=== PATIENT | female | born 1970 | race Native Hawaiian/Other Pacific Islander ===

== ENCOUNTER 2016-05-25 16:12 | Outpatient (CLI) | payer OTHER ==
[~2016-05-25 16:12] MED LIST: ALBUTEROL0.083 % IN; ALPR0.2566 PO; AMIT10TA21 PO; AMIT25TA22 PO; ATEN25TA21 PO; BENADRYL25 M1 OR; BENICAR HCT1 TAB PO; BENZONATATE200 MG PO; CARV25TA PO; CEFD300C2 PO; CHLOSUS43 PO; CLOP75TA2 PO; COLACE PO; CRESTOR20 MG PO; DEXL60CA4 PO; FLUOXETINE20 MG PO; FLUT0.05 NAS; FORTAMET500 MG PO; FURO40TA93 PO; GLIM4TAB PO; HYDR25TA60 PO; HYDROCHLOROT12.5 M1 PO; LEVO500T PO; LISI20TA11 PO; LOSA50TA PO; MEDROL DOSEPAK4 MG OR; METF500T PO; METO25TA2 PO; NIASPAN500 MG PO; RANO1000T PO; RANO500T PO; ROSU10TA PO; SIMV40TA57; SPIR25TA66 PO; ZANTAC PO
[2016-06-23] MEDS ORDERED: HYZAAR1 TA2 PO (10:25)
[2016-06-23] MEDS ORDERED: METFORMIN ER1000 MG PO ×2 (10:26)
[2016-06-23] MEDS ORDERED: CIPRO500 MG PO (10:26)
[2016-06-23] MEDS ORDERED: METR250T19 PO (10:28)
== END 2016-05-25 19:47 | disposition home or self-care (01) ==
LOC: RAD 16:12
DX: M54.2 Cervicalgia (principal); M54.12 Radiculopathy, cervical region

== ENCOUNTER 2016-06-10 12:13 | Outpatient (CLI) | payer OTHER ==
[2016-06-23] MEDS ORDERED: HYZAAR1 TA2 PO (10:25)
[2016-06-23] MEDS ORDERED: METFORMIN ER1000 MG PO ×2 (10:26)
[2016-06-23] MEDS ORDERED: CIPRO500 MG PO (10:26)
[2016-06-23] MEDS ORDERED: METR250T19 PO (10:28)
== END 2016-06-10 19:16 | disposition home or self-care (01) ==
LOC: MAMMO 12:13
DX: Z12.31 Encounter for screening mammogram for malignant neoplasm of breast (principal)
CPT/HCPCS: G0202-TC

== ENCOUNTER 2016-06-16 04:57 | Emergency (ER) | payer OTHER ==
[~2016-06-16] VITALS: Ht 177.8 cm; Wt 130.6 kg
[2016-06-16 06:03] VITALS: BP 136/79; TEMP 98.1
[2016-06-16] MEDS ORDERED: PROM25TA52 PO (06:07)
[2016-06-16] MEDS ORDERED: FIORICET/CODEIN1 CAP PO (06:07)
[2016-06-23] MEDS ORDERED: HYZAAR1 TA2 PO (10:25)
[2016-06-23] MEDS ORDERED: CIPRO500 MG PO (10:26)
[2016-06-23] MEDS ORDERED: METFORMIN ER1000 MG PO ×2 (10:26)
[2016-06-23] MEDS ORDERED: METR250T19 PO (10:28)
== END 2016-06-16 06:14 | disposition home or self-care (01) ==
LOC: ED 04:57
DX: G43.909 Migraine, unspecified, not intractable, without status migrainosus (principal)
CPT/HCPCS: 96374; 96375; 99284; J1100; J1885; J2550

== ENCOUNTER 2016-06-22 17:38 | Outpatient (CLI) | payer OTHER ==
[~2016-06-22 17:38] MED LIST changes: +FIORICET/CODEIN1 CAP PO; +PROM25TA52 PO
[2016-06-23] MEDS ORDERED: HYZAAR1 TA2 PO ×2 (10:25)
[2016-06-23] MEDS ORDERED: CIPRO500 MG PO ×2 (10:26)
[2016-06-23] MEDS ORDERED: METFORMIN ER1000 MG PO ×4 (10:26)
[2016-06-23] MEDS ORDERED: METR250T19 PO ×2 (10:28)
== END 2016-06-22 17:40 | disposition short-term general hospital (02) ==
LOC: AMB 17:38
DX: R07.89 Other chest pain (principal)
CPT/HCPCS: A0425; A0427

== ENCOUNTER 2016-06-22 17:42 | Emergency (ER) | payer OTHER ==
[~2016-06-22] VITALS: Ht 177.8 cm; Wt 131.5 kg
[2016-06-22 17:58] LABS: PLATELET COUNT 350 K/uL (152-353)
[2016-06-22 18:21] LABS: PARTIAL THROMBOPLASTIN TIME 21.5 SECONDS (24.5-33.6)
[2016-06-22 18:23] LABS: SODIUM 134 mmol/L (136-145)
[2016-06-22 18:29] LABS: POTASSIUM 2.4 mmol/L (3.6-5.2)
[2016-06-22 19:34] VITALS: BP 144/83; TEMP 98
[2016-06-23] MEDS ORDERED: HYZAAR1 TA2 PO (10:25)
[2016-06-23] MEDS ORDERED: METFORMIN ER1000 MG PO ×2 (10:26)
[2016-06-23] MEDS ORDERED: CIPRO500 MG PO (10:26)
[2016-06-23] MEDS ORDERED: METR250T19 PO (10:28)
== END 2016-06-22 19:30 | disposition home or self-care (01) ==
LOC: ED 17:42
DX: R07.89 Other chest pain (principal); E87.6 Hypokalemia; R00.0 Tachycardia, unspecified; E11.9 Type 2 diabetes mellitus without complications
CPT/HCPCS: 36415; 80053; 81000; 82550; 83036; 84484; 85027; 85610; 85730; 86318; 93005; 99283

== ENCOUNTER 2016-06-23 09:14 | Inpatient (IN) | payer OTHER ==
[~2016-06-23] VITALS: Ht 177.8 cm; Wt 132.1 kg
[2016-06-23] MEDS ORDERED: HYZAAR1 TA2 PO ×2 (10:25)
[2016-06-23] MEDS ORDERED: CIPRO500 MG PO ×2 (10:26)
[2016-06-23] MEDS ORDERED: METFORMIN ER1000 MG PO ×4 (10:26)
[2016-06-23] MEDS ORDERED: METR250T19 PO ×2 (10:28)
[2016-06-23 10:30] VITALS: BP 189/96; TEMP 98; Ht 177.8 cm; Wt 132.1 kg
--- NOTE | 2016-06-23 11:25 | NUR ---
Pt. ADMITTED TO ROOM [address] GREENE. C/O ABD PAIN WITH N&V.
[2016-06-23 12:00] VITALS: BP 137/77; TEMP 98.5
[2016-06-23 12:27] LABS: SODIUM 135 mmol/L (136-145)
[2016-06-23 12:29] LABS: POTASSIUM 2.4 mmol/L (3.6-5.2)
[2016-06-23 12:37] LABS: PLATELET COUNT 332 K/uL (152-353)
[2016-06-23 16:00] VITALS: BP 155/82; TEMP 98.8
[2016-06-23 20:00] VITALS: BP 117/62; TEMP 98.2
[2016-06-24] VITALS: BP 96/62; TEMP 97.9
[2016-06-24 03:49] LABS: PLATELET COUNT 277 K/uL (152-353)
[2016-06-24 04:00] VITALS: BP 129/65; TEMP 98
[2016-06-24 04:43] LABS: POTASSIUM 2.5 mmol/L (3.6-5.2); SODIUM 135 mmol/L (136-145)
[2016-06-24 07:58] VITALS: BP 151/83; TEMP 98.3
[2016-06-24 12:00] VITALS: BP 143/71; TEMP 98.1
[2016-06-24 16:00] VITALS: BP 141/50; TEMP 98.2
[2016-06-24 20:00] VITALS: BP 105/52; TEMP 99
[2016-06-25] VITALS: BP 120/53; TEMP 98.2
[2016-06-25 04:00] VITALS: BP 111/52; TEMP 98
[2016-06-25 05:35] LABS: PLATELET COUNT 297 K/uL (152-353)
[2016-06-25 05:52] LABS: POTASSIUM 3.2 mmol/L (3.6-5.2); SODIUM 134 mmol/L (136-145)
[2016-06-25 08:00] VITALS: BP 131/67; TEMP 97.6
[2016-06-25 12:00] VITALS: BP 105/62; TEMP 98.2
--- NOTE | 2016-06-25 16:03 | NUR ---
D/C INSTRUCTIONS GIVEN TO PT. PT VERBALIZED UNDERSTANDING. IV L HAND 22G D/C'D CATH TIP INTACT.
== END 2016-06-25 16:10 | disposition home or self-care (01) | DRG 392 ==
LOC: MED/SURG 09:14
PROVIDERS: Internal Medicine; ADMIT Nurse Practitioner
DX: K57.32 Diverticulitis of large intestine without perforation or abscess without bleeding (principal); E87.6 Hypokalemia; K21.9 Gastro-esophageal reflux disease without esophagitis; E11.9 Type 2 diabetes mellitus without complications
CPT/HCPCS: 36415; 80053; 81000; 82150; 82550; 82948; 83690; 83735; 84484; 85027; 85651; 86140; 87040; 93005; 96365; 96366; 96367; 96375; J0744; J2175; J3475; J3480; J3490; Q9963

== ENCOUNTER 2016-08-05 11:25 | Outpatient (CLI) | payer OTHER ==
[~2016-08-05] VITALS: Ht 177.8 cm; Wt 128.8 kg
[~2016-08-05 11:25] MED LIST changes: +CIPRO500 MG PO; +HYZAAR1 TA2 PO; +METFORMIN ER1000 MG PO; +METR250T19 PO
== END 2016-08-05 18:00 | disposition home or self-care (01) ==
LOC: INF 11:25
DX: E86.0 Dehydration (principal); R11.2 Nausea with vomiting, unspecified
CPT/HCPCS: 96361; 96374; J2405

== ENCOUNTER 2017-01-19 08:32 | Outpatient (CLI) | payer OTHER ==
[2017-01-19] MEDS ORDERED: TEMA30CA18 PO (09:23)
[2017-01-19] MEDS ORDERED: FLUOXETINE20 MG PO (09:24)
== END 2017-01-19 08:34 | disposition short-term general hospital (02) ==
LOC: AMB 08:32
DX: R07.89 Other chest pain (principal); R68.84 Jaw pain; M79.602 Pain in left arm
CPT/HCPCS: A0425; A0427

== ENCOUNTER 2017-01-19 08:35 | Emergency (ER) | payer OTHER ==
[~2017-01-19] VITALS: Ht 177.8 cm; Wt 125.6 kg
[2017-01-19 08:35] VITALS: BP 124/77; TEMP 98.2
[2017-01-19 09:19] LABS: PLATELET COUNT 332 K/uL (152-353)
[2017-01-19] MEDS ORDERED: TEMA30CA18 PO (09:23)
[2017-01-19] MEDS ORDERED: FLUOXETINE20 MG PO (09:24)
[2017-01-19 09:37] LABS: POTASSIUM 3.4 mmol/L (3.6-5.2)
== END 2017-01-19 11:20 | disposition short-term general hospital (02) ==
LOC: ED 08:35
PROVIDERS: Family Medicine
DX: R07.89 Other chest pain (principal); R06.00 Dyspnea, unspecified; I20.0 Unstable angina; R11.0 Nausea
CPT/HCPCS: 36415; 80053; 80307; 81000; 82550; 83735; 84484; 85027; 93005; 96365; 96375; 99284; G0479; J1644; J2270

== ENCOUNTER 2017-05-16 08:33 | Emergency (ER) | payer OTHER ==
[~2017-05-16] VITALS: Ht 177.8 cm; Wt 122.0 kg
[~2017-05-16 08:33] MED LIST changes: +TEMA30CA18 PO
[2017-05-16 08:38] VITALS: TEMP 98.1
[2017-05-16 09:31] LABS: PLATELET COUNT 306 K/uL (152-353)
[2017-05-16 13:32] LABS: POTASSIUM 3.1 mmol/L (3.6-5.2)
[2017-05-16 14:11] VITALS: BP 134/96
== END 2017-05-16 14:11 | disposition home or self-care (01) ==
LOC: ED 08:33
PROVIDERS: Family Medicine
DX: E11.65 Type 2 diabetes mellitus with hyperglycemia (principal); E87.6 Hypokalemia; R51 Headache
CPT/HCPCS: 36415; 80053; 85027; 96361; 96365; 96375; 99284; J1170; J1815; J3480

== ENCOUNTER 2017-05-23 07:40 | Outpatient (CLI) | payer OTHER | END 2017-05-23 21:07 | disposition home or self-care (01) | LOC: LABW 07:40 | DX: E78.4 Other hyperlipidemia (principal) | CPT/HCPCS: 36415; 83721 ==

== ENCOUNTER 2017-06-14 08:23 | Outpatient (CLI) | payer OTHER | END 2017-06-14 19:46 | disposition home or self-care (01) | LOC: MAMMO 08:23 | DX: Z12.31 Encounter for screening mammogram for malignant neoplasm of breast (principal) ==

== ENCOUNTER 2017-06-29 07:56 | Emergency (ER) | payer OTHER ==
[~2017-06-29] VITALS: Ht 177.8 cm; Wt 117.9 kg
[2017-06-29 08:00] VITALS: TEMP 98.2
[2017-06-29 08:45] LABS: POTASSIUM 3.1 mmol/L (3.6-5.2); SODIUM 134 mmol/L (136-145)
[2017-06-29 09:01] LABS: PLATELET COUNT 313 K/uL (152-353)
[2017-06-29 09:52] VITALS: BP 143/73
== END 2017-06-29 09:52 | disposition home or self-care (01) ==
LOC: ED 07:56
PROVIDERS: Family Medicine
DX: E87.6 Hypokalemia (principal); N83.8 Other noninflammatory disorders of ovary, fallopian tube and broad ligament
CPT/HCPCS: 36415; 80048; 84484; 85027; 96374; 96375; 99284; J1170; J2405

== ENCOUNTER 2017-09-01 09:07 | Outpatient (CLI) | payer OTHER | END 2017-09-01 22:04 | disposition home or self-care (01) | LOC: RAD 09:07 | DX: M25.552 Pain in left hip (principal); M25.511 Pain in right shoulder ==

== ENCOUNTER 2017-09-20 07:25 | Day surgery (SDC) | payer OTHER ==
[2017-09-16 11:46] LABS: POTASSIUM 2.9 mmol/L (3.6-5.2)
[2017-09-16 11:49] LABS: PLATELET COUNT 257 K/uL (152-353)
[2017-09-16 12:10] LABS: PARTIAL THROMBOPLASTIN TIME 24.9 SECONDS (24.5-33.6)
[~2017-09-20] VITALS: Ht 177.8 cm; Wt 120.2 kg
== END 2017-09-20 13:12 | disposition home or self-care (01) ==
LOC: OR 07:25
PROVIDERS: Student in an Organized Health Care Education/Training Program
PROC: 0DB68ZZ Excision of Stomach, Via Natural or Artificial Opening Endoscopic (ICD-10-PCS; principal; 2017-09-20)
PROC: 0D758ZZ Dilation of Esophagus, Via Natural or Artificial Opening Endoscopic (ICD-10-PCS; 2017-09-20)
DX: K22.2 Esophageal obstruction (principal); K29.50 Unspecified chronic gastritis without bleeding; K31.84 Gastroparesis; E11.43 Type 2 diabetes mellitus with diabetic autonomic (poly)neuropathy; R13.12 Dysphagia, oropharyngeal phase
CPT/HCPCS: 36415; 80053; 85027; 85610; 85730; J2001; J2250; J2704

== ENCOUNTER 2017-09-21 08:44 | Outpatient (CLI) | payer OTHER ==
[2017-09-21 09:00] LABS: POTASSIUM 4.2 mmol/L (3.6-5.2)
== END 2017-09-21 23:16 | disposition home or self-care (01) ==
LOC: LABW 08:44
PROVIDERS: Nurse Practitioner
DX: E87.6 Hypokalemia (principal)
CPT/HCPCS: 36415; 80048

== ENCOUNTER 2017-10-05 09:59 | Observation (INO) | payer OTHER ==
[~2017-10-05] VITALS: Ht 177.8 cm; Wt 119.7 kg
[~2017-10-05 09:59] MED LIST changes: -ALLO100T22 PO; -JANUMET XR1 TA1 PO; -K-TABS10 MEQ PO; -LORA1TAB17 PO; -MONT10TA PO; -RANI150T78 PO
[2017-10-05 12:20] LABS: PLATELET COUNT 334 K/uL (152-353)
--- NOTE | 2017-10-05 12:23 | NUR ---
[id number] ONEIL PHONED AND STATED DR ONEIL WANTED PT TRANSFERRED TO [facility]. PT INFORMED WILL NOTIFY
[2017-10-05 12:24] VITALS: BP 141/78; TEMP 98.5; Ht 177.8 cm; Wt 119.7 kg
[2017-10-05 12:52] LABS: PARTIAL THROMBOPLASTIN TIME 26.1 SECONDS (24.5-33.6)
[2017-10-05] MEDS ORDERED: LORA1TAB17 PO (12:54)
[2017-10-05] MEDS ORDERED: MONT10TA PO (12:54)
[2017-10-05] MEDS ORDERED: RANI150T78 PO (12:55)
[2017-10-05] MEDS ORDERED: JANUMET XR1 TA1 PO (12:56)
[2017-10-05] MEDS ORDERED: ALLO100T22 PO (12:57)
[2017-10-05] MEDS ORDERED: K-TABS10 MEQ PO (12:58)
--- NOTE | 2017-10-05 15:13 | NUR ---
1510 REPORT GIVEN TO KARLENE GIRALDO RN AT [facility]. EMS NOTIFIED OF TRANSFER. PT INFORMED AND AWARE.
== END 2017-10-05 16:00 | disposition short-term general hospital (02) ==
LOC: MED/SURG 09:59
DX: R07.89 Other chest pain (principal); I10 Essential (primary) hypertension; E78.4 Other hyperlipidemia; I25.10 Atherosclerotic heart disease of native coronary artery without angina pectoris; R11.0 Nausea
CPT/HCPCS: 80053; 82550; 84484; 85027; 85610; 85730; 93005; 99220; G0378; G0379

== ENCOUNTER → 2017-10-05 | Outpatient (CLI) | payer OTHER ==
[~2017-10-05] MED LIST changes: +ALLO100T22 PO; +JANUMET XR1 TA1 PO; +K-TABS10 MEQ PO; +LORA1TAB17 PO; +MONT10TA PO; +RANI150T78 PO
== END | disposition short-term general hospital (02) ==
LOC: AMB 15:51
DX: R07.89 Other chest pain (principal); I10 Essential (primary) hypertension; E78.4 Other hyperlipidemia; I25.10 Atherosclerotic heart disease of native coronary artery without angina pectoris; R11.0 Nausea
CPT/HCPCS: A0425; A0429

== ENCOUNTER 2017-11-09 08:30 | Outpatient (CLI) | payer OTHER ==
[~2017-11-09 08:30] MED LIST changes: +ALLO100T22 PO; +JANUMET XR1 TA1 PO; +K-TABS10 MEQ PO; +LORA1TAB17 PO; +MONT10TA PO; +RANI150T78 PO
[2017-11-09 09:08] LABS: PLATELET COUNT 244 K/uL (152-353)
[2017-11-19] MEDS ORDERED: ONDA4TAB3 PO (15:29)
== END 2017-11-09 22:31 | disposition home or self-care (01) ==
LOC: LABW 08:30
PROVIDERS: Internal Medicine Critical Care Medicine
DX: G25.81 Restless legs syndrome (principal); R79.89 Other specified abnormal findings of blood chemistry
CPT/HCPCS: 36415; 82728; 83540; 84443; 85027

== ENCOUNTER 2017-11-18 08:42 | Observation (INO) | payer OTHER ==
[~2017-11-18] VITALS: Ht 177.8 cm; Wt 118.6 kg
[2017-11-18 10:15] LABS: PLATELET COUNT 293 K/uL (152-353)
[2017-11-18 10:20] VITALS: BP 120/68; TEMP 98.9; Ht 177.8 cm; Wt 118.6 kg
[2017-11-18 12:00] VITALS: BP 110/53; TEMP 98.6
[2017-11-18] MEDS ORDERED: HUMULIN R1 M1 SC (15:56)
[2017-11-18] MEDS ORDERED: VICTOZA18 MG/3 ML SC (15:56)
[2017-11-18] MEDS ORDERED: CYAN10009 IM (15:57)
[2017-11-18] MEDS ORDERED: ERRIN0.35 MG (15:58)
[2017-11-18 16:00] VITALS: BP 104/55; TEMP 98
[2017-11-18] MEDS ORDERED: ERRIN0.35 MG PO (16:02)
[2017-11-18] MEDS ORDERED: JANUMET1 TA1 PO (16:03)
[2017-11-18] MEDS ORDERED: HYDR25TA60 PO (16:03)
[2017-11-18 19:37] VITALS: BP 136/61; TEMP 98.3
[2017-11-19] VITALS: BP 107/59; TEMP 98.1
[2017-11-19 04:00] VITALS: BP 117/64; TEMP 97.5
[2017-11-19 05:39] LABS: PLATELET COUNT 215 K/uL (152-353)
[2017-11-19 05:57] LABS: POTASSIUM 2.7 mmol/L (3.6-5.2)
[2017-11-19 07:56] VITALS: BP 114/72; TEMP 98.6
[2017-11-19 12:00] VITALS: BP 123/77; TEMP 99.1
[2017-11-19 14:32] LABS: POTASSIUM 3.3 mmol/L (3.6-5.2)
[2017-11-19] MEDS ORDERED: POTA20TA4 PO (15:29)
[2017-11-19] MEDS ORDERED: ONDA4TAB3 PO ×2 (15:29)
[2017-11-19] MEDS ORDERED: MAG OXIDE400 MG PO (15:29)
--- NOTE | 2017-11-19 16:42 | NUR ---
IV D/C'D PER DOCTORS ORDERS. DISCHARGE INSTRUCTIONS GIVEN. PT IS TO FOLLOW UP WITH [employer] ON TUESDAY OR TUESDAY TO BE RELEASED FOR WORK. 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 NEW MEDICATIONS WERE SENT OVER TO PTS PHARMACY AND EXPLAINED HOW TO TAKE EACH MEDICATION. PT UNDERSTANDS ALL DISCHARGE INSTRUCTIONS. PT LEFT VIA WC TO POV. PTS SPOUSE AT SIDE. NAD NOTED.
== END 2017-11-19 16:40 | disposition home or self-care (01) ==
LOC: MED/SURG 08:42
PROVIDERS: Family Medicine; ADMIT Nurse Practitioner Family
DX: E86.0 Dehydration (principal); R11.2 Nausea with vomiting, unspecified; R19.7 Diarrhea, unspecified; E11.9 Type 2 diabetes mellitus without complications; R00.0 Tachycardia, unspecified; R81 Glycosuria; R53.83 Other fatigue; R51 Headache; E87.1 Hypo-osmolality and hyponatremia; E11.65 Type 2 diabetes mellitus with hyperglycemia; E83.42 Hypomagnesemia
CPT/HCPCS: 36415; 80048; 80053; 81000; 82948; 83735; 85027; 93005; 94760; 96360; 96361; 96367; 96372; 96374; 99220; G0378; G0379; J1815; J2550; J3475

== ENCOUNTER 2017-11-21 08:59 | Outpatient (CLI) | payer OTHER ==
[~2017-11-21 08:59] MED LIST changes: +CYAN10009 IM; +ERRIN0.35 MG; +ERRIN0.35 MG PO; +HUMULIN R1 M1 SC; +JANUMET1 TA1 PO; +MAG OXIDE400 MG PO; +ONDA4TAB3 PO; +POTA20TA4 PO; +VICTOZA18 MG/3 ML SC
[2017-11-21 09:14] LABS: PLATELET COUNT 222 K/uL (152-353)
[2017-11-21 09:26] LABS: POTASSIUM 3.3 mmol/L (3.6-5.2)
== END 2017-11-21 21:59 | disposition home or self-care (01) ==
LOC: LABW 08:59
PROVIDERS: Nurse Practitioner Family
DX: E86.0 Dehydration (principal); E83.42 Hypomagnesemia
CPT/HCPCS: 36415; 80053; 81000; 83735; 85027

== ENCOUNTER 2017-12-07 10:24 | Outpatient (CLI) | payer OTHER | END 2017-12-07 23:59 | disposition home or self-care (01) | LOC: LABW 10:24 | DX: M10.071 Idiopathic gout, right ankle and foot (principal) | CPT/HCPCS: 36415; 84550 ==

== ENCOUNTER 2018-01-17 08:37 | Emergency (ER) | payer OTHER ==
[~2018-01-17] VITALS: Ht 177.8 cm; Wt 118.4 kg
[2018-01-17 08:44] VITALS: TEMP 98.7
[2018-01-17 09:11] LABS: PLATELET COUNT 299 K/uL (152-353)
[2018-01-17 09:29] LABS: POTASSIUM 3.4 mmol/L (3.6-5.2); SODIUM 136 mmol/L (136-145)
[2018-01-17 12:45] VITALS: BP 106/68
== END 2018-01-17 12:45 | disposition home or self-care (01) ==
LOC: ED 08:37
PROVIDERS: Family Medicine
DX: E11.65 Type 2 diabetes mellitus with hyperglycemia (principal); R51 Headache
CPT/HCPCS: 36415; 80053; 81000; 82962; 84484; 85027; 93005; 96365; 96374; 96376; 99284; J1815

== ENCOUNTER 2018-01-19 06:52 | Outpatient (CLI) | payer OTHER ==
[2018-01-19 08:04] LABS: POTASSIUM 3.3 mmol/L (3.6-5.2)
[2018-01-19 08:30] LABS: PLATELET COUNT 336 K/uL (152-353)
== END 2018-01-19 19:31 | disposition home or self-care (01) ==
LOC: LABW 06:52
PROVIDERS: Internal Medicine
DX: M19.90 Unspecified osteoarthritis, unspecified site (principal); R21 Rash and other nonspecific skin eruption; E11.9 Type 2 diabetes mellitus without complications
CPT/HCPCS: 36415; 80053; 80061; 81000; 82043; 82570; 83036; 84439; 84443; 85027; 85651; 86039; 86140; 86162; 86430; 86431

== ENCOUNTER 2018-01-26 07:03 | Emergency (ER) | payer OTHER ==
[~2018-01-26] VITALS: Ht 177.8 cm; Wt 118.4 kg
[2018-01-26 07:11] VITALS: TEMP 98.1
[2018-01-26 07:54] LABS: PLATELET COUNT 282 K/uL (152-353)
[2018-01-26 08:01] LABS: POTASSIUM 3.1 mmol/L (3.6-5.2); SODIUM 139 mmol/L (136-145)
[2018-01-26 09:45] VITALS: BP 120/76
== END 2018-01-26 09:48 | disposition home or self-care (01) ==
LOC: ED 07:03
PROVIDERS: Emergency Medicine
DX: R07.89 Other chest pain (principal)
CPT/HCPCS: 36415; 80053; 82550; 82553; 84484; 85027; 85379; 93005; 96374; 99284; J2270

== ENCOUNTER 2018-02-20 08:31 | Outpatient (CLI) | payer OTHER ==
[2018-02-20 08:56] LABS: POTASSIUM 3.8 mmol/L (3.6-5.2)
== END 2018-02-20 19:54 | disposition home or self-care (01) ==
LOC: LABW 08:31
PROVIDERS: Internal Medicine Cardiovascular Disease
DX: I50.9 Heart failure, unspecified (principal); Z79.899 Other long term (current) drug therapy; M10.071 Idiopathic gout, right ankle and foot
CPT/HCPCS: 36415; 80048; 83880; 84550; 85651

== ENCOUNTER 2018-03-13 13:27 | Emergency (ER) | payer OTHER ==
[~2018-03-13] VITALS: Ht 177.8 cm; Wt 122.5 kg
[2018-03-13 13:30] VITALS: TEMP 98
[2018-03-13 13:47] LABS: PLATELET COUNT 257 K/uL (152-353)
[2018-03-13 13:57] LABS: POTASSIUM 3.5 mmol/L (3.6-5.2); SODIUM 135 mmol/L (136-145)
[2018-03-13 15:14] VITALS: BP 126/80
== END 2018-03-13 15:17 | disposition home or self-care (01) ==
LOC: ED 13:27
DX: R00.2 Palpitations (principal); F41.9 Anxiety disorder, unspecified
CPT/HCPCS: 36415; 80053; 81000; 82550; 82553; 84484; 85027; 93005; 99283

== ENCOUNTER 2018-04-20 07:30 | Day surgery (SDC) | payer OTHER ==
[2018-04-20 08:29] LABS: PLATELET COUNT 295 K/uL (152-353)
== END 2018-04-20 10:36 | disposition home or self-care (01) ==
LOC: OR 07:30
PROVIDERS: Internal Medicine
PROC: 0DJD8ZZ Inspection of Lower Intestinal Tract, Via Natural or Artificial Opening Endoscopic (ICD-10-PCS; principal; 2018-04-20)
DX: K57.30 Diverticulosis of large intestine without perforation or abscess without bleeding (principal); Z12.11 Encounter for screening for malignant neoplasm of colon; Z86.010 Personal history of colon polyps; Z80.0 Family history of malignant neoplasm of digestive organs
CPT/HCPCS: 85027; J2001; J2250; J2704

== ENCOUNTER 2018-06-12 09:24 | Outpatient (CLI) | payer OTHER | END 2018-06-12 19:56 | disposition home or self-care (01) | LOC: RAD 09:24 | DX: M25.561 Pain in right knee (principal) ==

== ENCOUNTER 2018-06-22 08:22 | Outpatient (CLI) | payer OTHER | END 2018-06-22 21:40 | disposition home or self-care (01) | LOC: MAMMO 08:22 | DX: Z12.31 Encounter for screening mammogram for malignant neoplasm of breast (principal) ==

== ENCOUNTER 2018-07-11 09:33 | Outpatient (CLI) | payer OTHER | END 2018-07-11 22:58 | disposition home or self-care (01) | LOC: RAD 09:33 | DX: J20.8 Acute bronchitis due to other specified organisms (principal) ==

== ENCOUNTER 2018-07-17 13:38 | Outpatient (CLI) | payer OTHER | END 2018-07-17 21:03 | disposition home or self-care (01) | LOC: LABW 13:38 | DX: J20.8 Acute bronchitis due to other specified organisms (principal) | CPT/HCPCS: 36415; 86615; 86738 ==

== ENCOUNTER 2018-10-16 14:25 | Outpatient (CLI) | payer OTHER | END 2018-10-16 23:27 | disposition home or self-care (01) | LOC: RAD 14:25 | DX: M25.551 Pain in right hip (principal); M25.552 Pain in left hip; M25.561 Pain in right knee ==

== ENCOUNTER 2018-12-21 07:24 | Day surgery (SDC) | payer OTHER ==
[~2018-12-21] VITALS: Ht 30.5 cm; Wt 0.5 kg
[2018-12-21 08:29] LABS: PLATELET COUNT 244 K/uL (152-353)
[2018-12-21 08:38] LABS: POTASSIUM 3.6 mmol/L (3.6-5.2)
== END 2018-12-21 11:06 | disposition home or self-care (01) ==
LOC: OR 07:24
PROVIDERS: Internal Medicine
PROC: 0D738ZZ Dilation of Lower Esophagus, Via Natural or Artificial Opening Endoscopic (ICD-10-PCS; principal; 2018-12-21)
DX: R13.10 Dysphagia, unspecified (principal); K22.2 Esophageal obstruction; K44.9 Diaphragmatic hernia without obstruction or gangrene; K29.70 Gastritis, unspecified, without bleeding
CPT/HCPCS: 80053; 85027; J2250; J2405; J2704; J3490

== ENCOUNTER 2019-02-01 09:37 | Outpatient (CLI) | payer OTHER ==
[2019-02-01 10:09] LABS: PLATELET COUNT 236 K/uL (152-353)
[2019-02-01 10:23] LABS: POTASSIUM 3.8 mmol/L (3.6-5.2)
== END 2019-02-01 20:33 | disposition home or self-care (01) ==
LOC: LABW 09:37
PROVIDERS: Nurse Practitioner
DX: E11.40 Type 2 diabetes mellitus with diabetic neuropathy, unspecified (principal); E78.00 Pure hypercholesterolemia, unspecified; R53.82 Chronic fatigue, unspecified
CPT/HCPCS: 36415; 80053; 80061; 82043; 82570; 82607; 83036; 84443; 85027

== ENCOUNTER 2019-03-09 19:38 | Emergency (ER) | payer OTHER ==
[~2019-03-09] VITALS: Ht 177.8 cm; Wt 127.1 kg
[2019-03-09 21:03] LABS: PLATELET COUNT 242 K/uL (152-353)
[2019-03-09 21:05] LABS: POTASSIUM 3.5 mmol/L (3.6-5.2)
[2019-03-09 22:10] VITALS: BP 171/92; TEMP 99
== END 2019-03-09 22:10 | disposition home or self-care (01) ==
LOC: ED 19:38
PROVIDERS: Family Medicine
DX: L03.031 Cellulitis of right toe (principal); E87.6 Hypokalemia; E11.65 Type 2 diabetes mellitus with hyperglycemia
CPT/HCPCS: 36415; 80053; 81000; 84550; 85027; 96372; 99283; J1815; J1885

== ENCOUNTER 2019-05-07 08:27 | Emergency (ER) | payer OTHER ==
[~2019-05-07] VITALS: Ht 177.8 cm; Wt 127.0 kg
[2019-05-07 08:33] VITALS: TEMP 97.9
[2019-05-07 09:15] LABS: POTASSIUM 3.5 mmol/L (3.6-5.2); SODIUM 137 mmol/L (136-145)
[2019-05-07 09:49] LABS: PLATELET COUNT 230 K/uL (152-353)
[2019-05-07 12:53] VITALS: BP 149/71
== END 2019-05-07 12:54 | disposition home or self-care (01) ==
LOC: ED 08:27
PROVIDERS: Student in an Organized Health Care Education/Training Program
DX: R06.00 Dyspnea, unspecified (principal); R13.10 Dysphagia, unspecified; E83.42 Hypomagnesemia; Z98.890 Other specified postprocedural states
CPT/HCPCS: 80048; 83735; 84484; 85027; 93005; 94664; 96365; 96375; 99284; J1610; J2405; J2930; J3475

== ENCOUNTER 2019-05-08 13:07 | Day surgery (SDC) | payer OTHER ==
[~2019-05-08] VITALS: Ht 30.5 cm; Wt 0.5 kg
== END 2019-05-08 15:52 | disposition home or self-care (01) ==
LOC: OR 13:07
PROC: 0DJ08ZZ Inspection of Upper Intestinal Tract, Via Natural or Artificial Opening Endoscopic (ICD-10-PCS; principal; 2019-05-08)
PROC: 0D738ZZ Dilation of Lower Esophagus, Via Natural or Artificial Opening Endoscopic (ICD-10-PCS; 2019-05-08)
DX: K22.2 Esophageal obstruction (principal); K29.70 Gastritis, unspecified, without bleeding; K44.9 Diaphragmatic hernia without obstruction or gangrene; R13.10 Dysphagia, unspecified; Z98.890 Other specified postprocedural states
CPT/HCPCS: J2001; J2250; J2405; J2704; J2765

== ENCOUNTER 2019-05-24 08:16 | Outpatient (CLI) | payer OTHER | END 2019-05-24 22:36 | disposition home or self-care (01) | LOC: CT 08:16 | DX: R91.1 Solitary pulmonary nodule (principal) | CPT/HCPCS: Q9963 ==

== ENCOUNTER 2019-06-20 12:07 | Outpatient (CLI) | payer OTHER ==
[2019-06-20 12:22] LABS: PLATELET COUNT 280 K/uL (152-353)
[2019-06-20 12:40] LABS: POTASSIUM 4.2 mmol/L (3.6-5.2)
== END 2019-06-20 19:27 | disposition home or self-care (01) ==
LOC: LAB 12:07
PROVIDERS: Nurse Practitioner Family
DX: Z00.00 Encounter for general adult medical examination without abnormal findings (principal); E11.9 Type 2 diabetes mellitus without complications; K21.9 Gastro-esophageal reflux disease without esophagitis; I10 Essential (primary) hypertension; R11.2 Nausea with vomiting, unspecified; K57.30 Diverticulosis of large intestine without perforation or abscess without bleeding; E78.00 Pure hypercholesterolemia, unspecified; R53.82 Chronic fatigue, unspecified; Z79.899 Other long term (current) drug therapy
CPT/HCPCS: 80053; 80061; 82306; 82607; 83036; 84439; 84481; 85027

== ENCOUNTER 2019-07-09 14:35 | Outpatient (CLI) | payer OTHER | END 2019-07-09 23:10 | disposition home or self-care (01) | LOC: LAB 14:35 | DX: M25.50 Pain in unspecified joint (principal); R21 Rash and other nonspecific skin eruption | CPT/HCPCS: 85651; 86038; 86140; 86430 ==